=== PATIENT | female | born 2000 ===

== ENCOUNTER → 2019-06-16 | Outpatient (REF) | payer OTHER ==
[2019-06-16 14:00] LABS: PLATELET COUNT, AUTOMATED 262 K/uL (150-450)
== END ==
PROVIDERS: ATTEND Nurse Practitioner Family
DX: R50.9 Fever, unspecified (principal)
CPT/HCPCS: 82040; 82247; 82310; 82374; 82435; 82565; 82947; 84075; 84132; 84155; 84295; 84450; 84460; 84520; 85025